=== PATIENT | female | born 1955 | race Caucasian/White ===

== ENCOUNTER 2019-08-16 16:51 | Inpatient (IN) ==
[2019-08-16] MEDS ORDERED: Nitroglycerin 0.4 MG TAB.SUBL SL PRN (19:13)
[2019-08-16] MEDS ORDERED: Aspirin 81 MG TAB.CHEW PO STA (19:13)
[2019-08-16 19:18] LABS: Hematocrit 47.8 % (35.3-44.9); Hemoglobin 15.5 g/dL (11.5-15.4); Mean Corpuscular HGB Conc 32.4 g/dL (31.6-35.5); Mean Corpuscular Hemoglobin 28.2 pg (28.0-33.3); Mean Corpuscular Volume 87.1 fL (83.0-100.0); Mean Platelet Volume 11.6 fL (9.4-12.4); Platelet Count 174 K/mcL (140-400); Red Blood Count 5.49 M/mcL (3.82-4.97); Red Cell Distribution Width 13.5 % (11.5-14.5); White Blood Count 11.6 K/mcL (4.3-11.1)
[2019-08-16] MEDS ORDERED: *HR* FentaNYL (PF) 100 MCG/2 ML VIAL IVP PRN (19:19)
[2019-08-16] MEDS ORDERED: *HR* Heparin 5,000 UNIT/ML VIAL IVP PRN ×3 (19:19→19:34)
[2019-08-16] MEDS ORDERED: *HR* Heparin 5,000 UNIT/ML VIAL IVP ONE ×2 (19:19→19:34)
[2019-08-16] MEDS ORDERED: Ondansetron 4 MG/2 ML VIAL IVP PRN (19:22)
[2019-08-16 19:24] LABS: Prothrombin Time 11.7 Seconds (9.4-12.1)
[2019-08-16] MEDS ORDERED: Heparin 25,000 UNIT/250 ML D5W 25,000 UNIT/250 ML IV.SOLN IVC SCH (19:30)
[2019-08-16] MEDS ORDERED: Ipratropium/Albuterol Neb 3 ML IH SCH (20:00)
[2019-08-16] MEDS: MethylPREDNISolone 40 MG/ML VIAL IVP SCH (20:15)
[2019-08-16] MEDS ORDERED: D5% in Water 1,000 ML IVC PRN (20:17)
[2019-08-16] MEDS ORDERED: *HR* Dextrose 50 % in Water (Syg) 50 ML SYRINGE IVP PRN (20:17)
[2019-08-16] MEDS ORDERED: Dextrose Gel 15 GM/37.5 ML TUBE PO PRN ×2 (20:17)
[2019-08-16] MEDS: Heparin 25,000 UNIT/250 ML D5W 25,000 UNIT/250 ML IV.SOLN IVC SCH (20:22)
[2019-08-16] MEDS: Insulin LISPRO 300 UNITS/3 ML VIAL SQ SCH (20:50)
[2019-08-16] MEDS: Ipratropium/Albuterol Neb 3 ML IH SCH (20:51)
[2019-08-16 22:08] LABS: Adenovirus Not Detected (Not Detect); Coronavirus 229E Not Detected (Not Detect); Coronavirus HKU1 Not Detected (Not Detect); Coronavirus NL63 Not Detected (Not Detect); Coronavirus OC43 Not Detected (Not Detect)
[2019-08-16 22:09] LABS: Bordetella Pertussis Not Detected (Not Detect); Chlamydophila pneumoniae Not Detected (Not Detect); Human Metapneumovirus Not Detected (Not Detect); Human Rhinovirus/Enterovirus DETECTED (Not Detect); Influenza A Subtype 2009 H1 Not Detected (Not Detect); Influenza B Not Detected (Not Detect); Mycoplasma pneumoniae Not Detected (Not Detect); Parainfluenza Virus 1 Not Detected (Not Detect); Parainfluenza Virus 2 Not Detected (Not Detect); Parainfluenza Virus 3 Not Detected (Not Detect); Parainfluenza Virus 4 Not Detected (Not Detect); Respiratory Syncytial Virus Not Detected (Not Detect)
[2019-08-16] MEDS ORDERED: DICLOFENAC GEL TP PRN (23:24)
[2019-08-16] MEDS: Insulin DETEMIR 100 UNIT/ML X5UNITS SQ SCH (23:55)
[2019-08-17] MEDS: Ipratropium/Albuterol Neb 3 ML IH SCH ×7 (00:22→23:46)
[2019-08-17 02:30] LABS: Basophils % 0.2 %; Hematocrit 46.6 % (35.3-44.9); Hemoglobin 14.7 g/dL (11.5-15.4); Immature Granulocytes % 0.6 % (0-4); Lymphocytes # 0.7 K/mcL (0.6-4.6); Lymphocytes % 6.4 %; Mean Corpuscular HGB Conc 31.5 g/dL (31.6-35.5); Mean Corpuscular Hemoglobin 27.8 pg (28.0-33.3); Mean Corpuscular Volume 88.1 fL (83.0-100.0); Mean Platelet Volume 11.3 fL (9.4-12.4); Monocytes # 0.3 K/mcL (0.0-1.3); Monocytes % 2.9 %; Neutrophils # 9.7 K/mcL (1.6-8.9); Platelet Count 169 K/mcL (140-400); Red Blood Count 5.29 M/mcL (3.82-4.97); Red Cell Distribution Width 13.5 % (11.5-14.5); Segmented Neutrophils % 89.9 %; White Blood Count 10.8 K/mcL (4.3-11.1)
[2019-08-17] MEDS ORDERED: *HR* LORazepam 0.5 MG TABLET PO ONE (02:43)
[2019-08-17 02:51] LABS: BUN/Creatinine Ratio 34 (6-26); Blood Urea Nitrogen 20 mg/dL (8-23); Calcium 8.5 mg/dL (8.6-10.3); Carbon Dioxide 19 mEq/L (23-29); Chloride 103 mEq/L (98-107); Glucose 406 mg/dL (70-105); Osmolality,Calculated 300 (280-300); Potassium 4.5 mEq/L (3.5-5.1); Sodium 135 mEq/L (136-145); Troponin I 0.45 ng/mL (< 0.04); eGFR For African Americans > 60 (> 60); eGFR For Non-African Americans > 60 (> 60)
[2019-08-17] MEDS: MethylPREDNISolone 40 MG/ML VIAL IVP SCH ×3 (03:01→20:40)
[2019-08-17] MEDS ORDERED: Insulin DETEMIR 100 UNIT/ML X5UNITS SQ ONE (04:17)
[2019-08-17] MEDS: Metoprolol XL (24 HR) Succ 25 MG TAB.ER.24H PO SCH (08:30)
[2019-08-17] MEDS: Lisinopril 20 MG TABLET PO SCH (08:30)
[2019-08-17] MEDS: Venlafaxine XR (24 HR) 150 MG CAP.ER.24H PO SCH (08:30)
[2019-08-17] MEDS: Furosemide 40 MG TABLET PO SCH (08:30)
[2019-08-17] MEDS: Aspirin 81 MG TAB.CHEW PO SCH (08:30)
[2019-08-17] MEDS: Isosorbide MONOnitrate (24 HR) 60 MG TAB.ER.24H PO SCH (08:30)
[2019-08-17] MEDS: Insulin LISPRO 300 UNITS/3 ML VIAL SQ SCH ×4 (08:31→20:40)
[2019-08-17] MEDS: Furosemide 40 MG/4 ML VIAL IVP SCH ×2 (10:41→20:40)
[2019-08-17] MEDS: *HR* Heparin 5,000 UNIT/ML VIAL IVP PRN ×2 (16:14→23:18)
[2019-08-17] MEDS: Insulin DETEMIR 100 UNIT/ML X5UNITS SQ SCH (20:41)
[2019-08-18] MEDS: Ipratropium/Albuterol Neb 3 ML IH SCH ×6 (03:51→23:51)
[2019-08-18] MEDS: MethylPREDNISolone 40 MG/ML VIAL IVP SCH ×3 (05:08→21:54)
[2019-08-18] MEDS: Heparin 25,000 UNIT/250 ML D5W 25,000 UNIT/250 ML IV.SOLN IVC SCH (05:09)
[2019-08-18] MEDS: Furosemide 40 MG/4 ML VIAL IVP SCH ×2 (08:50→21:54)
[2019-08-18] MEDS: Venlafaxine XR (24 HR) 150 MG CAP.ER.24H PO SCH (08:50)
[2019-08-18] MEDS: Metoprolol XL (24 HR) Succ 25 MG TAB.ER.24H PO SCH (08:50)
[2019-08-18] MEDS: Insulin LISPRO 300 UNITS/3 ML VIAL SQ SCH ×4 (08:50→21:56)
[2019-08-18] MEDS: Lisinopril 20 MG TABLET PO SCH (08:51)
[2019-08-18] MEDS: Isosorbide MONOnitrate (24 HR) 60 MG TAB.ER.24H PO SCH (08:51)
[2019-08-18] MEDS: Furosemide 40 MG TABLET PO SCH (08:51)
[2019-08-18] MEDS: Aspirin 81 MG TAB.CHEW PO SCH (08:51)
[2019-08-18] MEDS: Insulin DETEMIR 100 UNIT/ML X5UNITS SQ SCH (21:55)
[2019-08-19 02:52] LABS: Basophils % 0.1 %; Hematocrit 48.2 % (35.3-44.9); Hemoglobin 15.8 g/dL (11.5-15.4); Immature Granulocytes % 0.6 % (0-4); Lymphocytes # 0.9 K/mcL (0.6-4.6); Lymphocytes % 6.5 %; Mean Corpuscular HGB Conc 32.8 g/dL (31.6-35.5); Mean Corpuscular Hemoglobin 27.8 pg (28.0-33.3); Mean Corpuscular Volume 84.7 fL (83.0-100.0); Mean Platelet Volume 11.5 fL (9.4-12.4); Monocytes # 0.5 K/mcL (0.0-1.3); Monocytes % 3.3 %; Neutrophils # 12.6 K/mcL (1.6-8.9); Platelet Count 218 K/mcL (140-400); Red Blood Count 5.69 M/mcL (3.82-4.97); Red Cell Distribution Width 13.7 % (11.5-14.5); Segmented Neutrophils % 89.5 %; White Blood Count 14.1 K/mcL (4.3-11.1)
[2019-08-19 03:05] LABS: BUN/Creatinine Ratio 52 (6-26); Blood Urea Nitrogen 31 mg/dL (8-23); Calcium 9.8 mg/dL (8.6-10.3); Carbon Dioxide 34 mEq/L (23-29); Chloride 93 mEq/L (98-107); Glucose 319 mg/dL (70-105); Osmolality,Calculated 301 (280-300); Potassium 4.4 mEq/L (3.5-5.1); Sodium 136 mEq/L (136-145); eGFR For African Americans > 60 (> 60); eGFR For Non-African Americans > 60 (> 60)
[2019-08-19] MEDS: Ipratropium/Albuterol Neb 3 ML IH SCH ×6 (03:50→23:09)
[2019-08-19] MEDS: MethylPREDNISolone 40 MG/ML VIAL IVP SCH ×2 (04:48→12:46)
[2019-08-19] MEDS: Heparin 25,000 UNIT/250 ML D5W 25,000 UNIT/250 ML IV.SOLN IVC SCH (04:48)
[2019-08-19] MEDS: Lisinopril 20 MG TABLET PO SCH ×2 (09:04→14:44)
[2019-08-19] MEDS: Aspirin 81 MG TAB.CHEW PO SCH (09:11)
[2019-08-19] MEDS: Venlafaxine XR (24 HR) 150 MG CAP.ER.24H PO SCH (09:11)
[2019-08-19] MEDS: Insulin LISPRO 300 UNITS/3 ML VIAL SQ SCH ×4 (09:12→21:22)
[2019-08-19] MEDS: Furosemide 40 MG/4 ML VIAL IVP SCH ×2 (10:07→21:20)
[2019-08-19] MEDS: Metoprolol XL (24 HR) Succ 25 MG TAB.ER.24H PO SCH (11:48)
[2019-08-19] MEDS: Isosorbide MONOnitrate (24 HR) 60 MG TAB.ER.24H PO SCH (12:34)
[2019-08-19] MEDS: Insulin DETEMIR 100 UNIT/ML X5UNITS SQ SCH (21:23)
[2019-08-20] MEDS: Ipratropium/Albuterol Neb 3 ML IH SCH ×6 (03:47→23:31)
[2019-08-20] MEDS: Heparin 25,000 UNIT/250 ML D5W 25,000 UNIT/250 ML IV.SOLN IVC SCH (04:56)
[2019-08-20 05:20] LABS: Basophils # 0.1 K/mcL (0.0-0.2); Basophils % 0.3 %; Eosinophils % 0.1 %; Immature Granulocytes % 0.5 % (0-4); Lymphocytes # 3.3 K/mcL (0.6-4.6); Lymphocytes % 17.9 %; Mean Corpuscular Hemoglobin 28.7 pg (28.0-33.3); Mean Corpuscular Volume 87.1 fL (83.0-100.0); Mean Platelet Volume 11.3 fL (9.4-12.4); Monocytes # 1.3 K/mcL (0.0-1.3); Monocytes % 7.2 %; Neutrophils # 13.5 K/mcL (1.6-8.9); Platelet Count 221 K/mcL (140-400); Red Blood Count 6.44 M/mcL (3.82-4.97); Red Cell Distribution Width 14.3 % (11.5-14.5); White Blood Count 18.2 K/mcL (4.3-11.1)
[2019-08-20 05:23] LABS: Hematocrit 56.1 % (35.3-44.9); Hemoglobin 18.5 g/dL (11.5-15.4)
[2019-08-20 05:33] LABS: BUN/Creatinine Ratio 46 (6-26); Blood Urea Nitrogen 41 mg/dL (8-23); Calcium 9.6 mg/dL (8.6-10.3); Carbon Dioxide 35 mEq/L (23-29); Chloride 94 mEq/L (98-107); Glucose 195 mg/dL (70-105); Osmolality,Calculated 307 (280-300); Potassium 4.1 mEq/L (3.5-5.1); Sodium 141 mEq/L (136-145); eGFR For African Americans > 60 (> 60); eGFR For Non-African Americans > 60 (> 60)
[2019-08-20] MEDS: predniSONE 20 MG TABLET PO SCH (12:34)
[2019-08-20] MEDS: Venlafaxine XR (24 HR) 150 MG CAP.ER.24H PO SCH (12:34)
[2019-08-20] MEDS: Aspirin 81 MG TAB.CHEW PO SCH (12:34)
[2019-08-20] MEDS: Furosemide 40 MG/4 ML VIAL IVP SCH (12:34)
[2019-08-20] MEDS: Insulin LISPRO 300 UNITS/3 ML VIAL SQ SCH ×4 (12:35→22:33)
[2019-08-20] MEDS: Isosorbide MONOnitrate (24 HR) 60 MG TAB.ER.24H PO SCH (12:35)
[2019-08-20] MEDS: Lisinopril 20 MG TABLET PO SCH (12:37)
[2019-08-20] MEDS: Metoprolol XL (24 HR) Succ 25 MG TAB.ER.24H PO SCH (12:39)
[2019-08-20] MEDS ORDERED: *HR* Heparin 10,000 UNIT/10 ML VIAL ONE (14:34)
[2019-08-20] MEDS ORDERED: Heparin 1,000 UNITS/500 mL 500 ML ONE (14:34)
[2019-08-20] MEDS ORDERED: ISOVUE-370 200 ML INFUS..BTL ONE (14:35)
[2019-08-20] MEDS ORDERED: Nitroglycerin 1,000 MCG/10 ML VIAL IV ONE (14:35)
[2019-08-20] MEDS ORDERED: 0.9 % Sodium Chloride 2,000 ML ONE (14:35)
[2019-08-20] MEDS ORDERED: *HR* Midazolam HCl 2 MG/2 ML VIAL ONE (15:29)
[2019-08-20] MEDS ORDERED: *HR* FentaNYL (PF) 100 MCG/2 ML VIAL ONE (15:29)
[2019-08-21] MEDS: Insulin DETEMIR 100 UNIT/ML X5UNITS SQ SCH ×2 (00:04→22:10)
[2019-08-21] MEDS: Ipratropium/Albuterol Neb 3 ML IH SCH ×5 (04:09→20:02)
[2019-08-21 07:30] LABS: Basophils % 0.3 %; Eosinophils % 0.2 %; Hematocrit 54.1 % (35.3-44.9); Hemoglobin 17.5 g/dL (11.5-15.4); Immature Granulocytes % 0.6 % (0-4); Lymphocytes # 3.5 K/mcL (0.6-4.6); Lymphocytes % 22.4 %; Mean Corpuscular HGB Conc 32.3 g/dL (31.6-35.5); Mean Corpuscular Volume 86.7 fL (83.0-100.0); Mean Platelet Volume 11.1 fL (9.4-12.4); Monocytes # 1.1 K/mcL (0.0-1.3); Platelet Count 195 K/mcL (140-400); Red Blood Count 6.24 M/mcL (3.82-4.97); Red Cell Distribution Width 13.7 % (11.5-14.5); Segmented Neutrophils % 69.5 %; White Blood Count 15.8 K/mcL (4.3-11.1)
[2019-08-21 07:36] LABS: BUN/Creatinine Ratio 42 (6-26); Blood Urea Nitrogen 31 mg/dL (8-23); Calcium 9.3 mg/dL (8.6-10.3); Carbon Dioxide 36 mEq/L (23-29); Chloride 96 mEq/L (98-107); Glucose 50 mg/dL (70-105); Osmolality,Calculated 292 (280-300); Potassium 4.7 mEq/L (3.5-5.1); Sodium 139 mEq/L (136-145); eGFR For African Americans > 60 (> 60); eGFR For Non-African Americans > 60 (> 60)
[2019-08-21] MEDS: Insulin LISPRO 300 UNITS/3 ML VIAL SQ SCH ×4 (08:00→22:10)
[2019-08-21] MEDS: Venlafaxine XR (24 HR) 150 MG CAP.ER.24H PO SCH (09:15)
[2019-08-21] MEDS: predniSONE 20 MG TABLET PO SCH (09:15)
[2019-08-21] MEDS: Isosorbide MONOnitrate (24 HR) 60 MG TAB.ER.24H PO SCH (09:16)
[2019-08-21] MEDS: Aspirin 81 MG TAB.CHEW PO SCH (09:16)
[2019-08-21] MEDS: Lisinopril 20 MG TABLET PO SCH (09:16)
[2019-08-21] MEDS: Furosemide 40 MG TABLET PO SCH (09:16)
[2019-08-21] MEDS: Metoprolol XL (24 HR) Succ 25 MG TAB.ER.24H PO SCH (09:16)
[2019-08-22] MEDS: Ipratropium/Albuterol Neb 3 ML IH SCH ×5 (04:09→15:40)
[2019-08-22] MEDS ORDERED: *HR* Heparin 5,000 UNIT/ML VIAL IVP PRN ×2 (07:52)
[2019-08-22] MEDS ORDERED: *HR* Heparin 5,000 UNIT/ML VIAL IVP ONE (07:52)
[2019-08-22] MEDS ORDERED: Heparin 25,000 UNIT/250 ML D5W 25,000 UNIT/250 ML IV.SOLN IVC SCH (08:00)
[2019-08-22 08:44] LABS: Hematocrit 52.2 % (35.3-44.9); Hemoglobin 16.7 g/dL (11.5-15.4); Mean Corpuscular Hemoglobin 27.7 pg (28.0-33.3); Mean Corpuscular Volume 86.7 fL (83.0-100.0); Mean Platelet Volume 10.7 fL (9.4-12.4); Platelet Count 192 K/mcL (140-400); Red Blood Count 6.02 M/mcL (3.82-4.97); Red Cell Distribution Width 13.5 % (11.5-14.5); White Blood Count 19.7 K/mcL (4.3-11.1)
[2019-08-22 08:49] LABS: Heparin anti-factor XA UFH < 0.04 IU/mL (0.30-0.70)
[2019-08-22 08:50] LABS: Prothrombin Time 11.9 Seconds (9.4-12.1)
[2019-08-22] MEDS: Insulin LISPRO 300 UNITS/3 ML VIAL SQ SCH ×2 (10:08→12:36)
[2019-08-22] MEDS: Isosorbide MONOnitrate (24 HR) 60 MG TAB.ER.24H PO SCH (10:15)
[2019-08-22] MEDS: Aspirin 81 MG TAB.CHEW PO SCH (10:15)
[2019-08-22] MEDS: Venlafaxine XR (24 HR) 150 MG CAP.ER.24H PO SCH (10:15)
[2019-08-22] MEDS: predniSONE 20 MG TABLET PO SCH (10:16)
[2019-08-22] MEDS: Metoprolol XL (24 HR) Succ 25 MG TAB.ER.24H PO SCH (10:17)
[2019-08-22] MEDS: Lisinopril 20 MG TABLET PO SCH (10:17)
[2019-08-22 13:41] LABS: BUN/Creatinine Ratio 42 (6-26); Blood Urea Nitrogen 26 mg/dL (8-23); Calcium 8.9 mg/dL (8.6-10.3); Carbon Dioxide 34 mEq/L (23-29); Chloride 96 mEq/L (98-107); Glucose 170 mg/dL (70-105); Osmolality,Calculated 289 (280-300); Potassium 4.2 mEq/L (3.5-5.1); Sodium 135 mEq/L (136-145); eGFR For African Americans > 60 (> 60); eGFR For Non-African Americans > 60 (> 60)
[2019-08-22] MEDS: Furosemide 40 MG TABLET PO SCH (13:54)
[2019-08-22 16:10] VITALS: BP 114/55
[2019-08-22] MEDS ORDERED: Insulin DETEMIR 100 UNIT/ML X5UNITS SQ SCH ×2 (21:00)
== END 2019-08-22 17:58 | disposition critical access hospital (66) | DRG 280 ==
LOC: 2NENU → SUATTDRO 18:00
PROVIDERS: ADMIT Internal Medicine; ATTEND Internal Medicine

== ENCOUNTER 2020-08-04 01:16 | Inpatient (IN) ==
[2020-08-04] MEDS ORDERED: Ondansetron 4 MG/2 ML VIAL IVP PRN (03:16)
[2020-08-04] MEDS ORDERED: Naloxone 0.4 MG/ML INJ IVP PRN (03:16)
[2020-08-04] MEDS ORDERED: Acetaminophen 325 MG TABLET PO PRN (03:16)
[2020-08-04] MEDS ORDERED: *HR* Dextrose 50 % in Water (Vial) 50 ML VIAL IVP PRN (03:20)
[2020-08-04] MEDS ORDERED: D5% in Water 1,000 ML IVC PRN (03:20)
[2020-08-04] MEDS ORDERED: Dextrose Gel 15 GM/37.5 ML TUBE PO PRN ×2 (03:20)
[2020-08-04 05:18] LABS: Basophils # 0.1 K/mcL (0.0-0.2); Basophils % 0.6 %; Eosinophils # 0.1 K/mcL (0.0-0.6); Eosinophils % 0.7 %; Hematocrit 50.3 % (35.3-44.9); Hemoglobin 15.8 g/dL (11.5-15.4); Immature Granulocytes % 0.6 % (0-4); Lymphocytes # 2.7 K/mcL (0.6-4.6); Lymphocytes % 22.8 %; Mean Corpuscular HGB Conc 31.4 g/dL (31.6-35.5); Mean Corpuscular Hemoglobin 27.5 pg (28.0-33.3); Mean Corpuscular Volume 87.5 fL (83.0-100.0); Mean Platelet Volume 11.5 fL (9.4-12.4); Monocytes # 0.8 K/mcL (0.0-1.3); Monocytes % 6.4 %; Neutrophils # 8.1 K/mcL (1.6-8.9); Platelet Count 219 K/mcL (140-400); Red Blood Count 5.75 M/mcL (3.82-4.97); Red Cell Distribution Width 13.4 % (11.5-14.5); Segmented Neutrophils % 68.9 %; White Blood Count 11.7 K/mcL (4.3-11.1)
[2020-08-04] MEDS ORDERED: Perflutren Lipid Microsphere 1.3 ML in 0.9 % Sodium Chloride 8.7 ML IVP PRN (05:18)
[2020-08-04] MEDS: Insulin LISPRO 300 UNITS/3 ML VIAL SUBQ SCH ×4 (05:18→23:48)
[2020-08-04 05:37] LABS: Alanine Aminotransferase 46 Units/L (7-52); Albumin/Globulin Ratio 1.4 (1.1-2.2); Alkaline Phosphatase 93 Units/L (34-104); Aspartate Amino Transferase 38 Units/L (13-39); BUN/Creatinine Ratio 23 (6-26); Bilirubin,Total 0.4 mg/dL (0.3-1.0); Blood Urea Nitrogen 15 mg/dL (8-23); Calcium 9.2 mg/dL (8.6-10.3); Carbon Dioxide 28 mEq/L (23-29); Chloride 102 mEq/L (98-107); Globulin 2.8 g/dL (2.4-3.5); Glucose 403 mg/dL (70-105); Magnesium 1.9 mg/dL (1.6-2.6); Osmolality,Calculated 302 (280-300); Phosphorous 4.1 mg/dL (2.7-4.5); Potassium 4.5 mEq/L (3.5-5.1); Sodium 137 mEq/L (136-145); Total Protein 6.8 g/dL (6.4-8.9); eGFR For African Americans > 60 (> 60); eGFR For Non-African Americans > 60 (> 60)
[2020-08-04] MEDS ORDERED: *HR* Heparin 5,000 UNIT/ML VIAL SQ SCH (06:00)
[2020-08-04] MEDS ORDERED: *HR* Heparin 5,000 UNIT/ML VIAL IVP ONE (06:48)
[2020-08-04] MEDS ORDERED: *HR* Heparin 5,000 UNIT/ML VIAL IVP PRN ×2 (06:48)
[2020-08-04 07:24] LABS: Hematocrit 48.2 % (35.3-44.9); Hemoglobin 14.8 g/dL (11.5-15.4); Mean Corpuscular HGB Conc 30.7 g/dL (31.6-35.5); Mean Corpuscular Hemoglobin 26.6 pg (28.0-33.3); Mean Corpuscular Volume 86.5 fL (83.0-100.0); Mean Platelet Volume 11.3 fL (9.4-12.4); Platelet Count 219 K/mcL (140-400); Red Blood Count 5.57 M/mcL (3.82-4.97); Red Cell Distribution Width 13.3 % (11.5-14.5); White Blood Count 11.2 K/mcL (4.3-11.1)
[2020-08-04] MEDS: Heparin 25,000UNIT/250ML 1/2NS 25,000 UNIT/250 ML IV.SOLN IVC SCH (07:26)
[2020-08-04 07:31] LABS: Heparin anti-factor XA UFH < 0.04 IU/mL (0.30-0.70); Prothrombin Time 11.4 Seconds (9.4-12.1)
[2020-08-04] MEDS ORDERED: Furosemide 40 MG/4 ML VIAL IVP SCH (09:00)
[2020-08-04 09:18] LABS: Estimated Average Glucose 338 mg/dl; Hemoglobin A1C 13.4 %
[2020-08-04] MEDS: Insulin DETEMIR 100 UNIT/ML X5UNITS SUBQ SCH ×2 (10:20→20:12)
[2020-08-04] MEDS ORDERED: Aspirin 81 MG TAB.CHEW PO SCH (13:45)
[2020-08-04] MEDS: Aspirin Enteric Coated 81 MG Tablet PO SCH (15:22)
[2020-08-04] MEDS: Metoprolol XL (24 HR) Succ 25 MG TAB.ER.24H PO SCH (15:22)
[2020-08-04] MEDS ORDERED: Nitroglycerin 0.4 MG TAB.SUBL SL PRN (15:35)
[2020-08-04] MEDS: Furosemide 40 MG/4 ML VIAL IVP SCH (20:12)
[2020-08-05 04:35] LABS: Hematocrit 49.7 % (35.3-44.9); Hemoglobin 15.1 g/dL (11.5-15.4); Mean Corpuscular HGB Conc 30.4 g/dL (31.6-35.5); Mean Corpuscular Hemoglobin 26.1 pg (28.0-33.3); Platelet Count 190 K/mcL (140-400); Red Blood Count 5.78 M/mcL (3.82-4.97); Red Cell Distribution Width 13.2 % (11.5-14.5); White Blood Count 11.7 K/mcL (4.3-11.1)
[2020-08-05 04:55] LABS: BUN/Creatinine Ratio 34 (6-26); Blood Urea Nitrogen 20 mg/dL (8-23); Calcium 8.6 mg/dL (8.6-10.3); Carbon Dioxide 29 mEq/L (23-29); Chloride 100 mEq/L (98-107); Glucose 160 mg/dL (70-105); Osmolality,Calculated 290 (280-300); Potassium 3.8 mEq/L (3.5-5.1); Sodium 137 mEq/L (136-145); eGFR For African Americans > 60 (> 60); eGFR For Non-African Americans > 60 (> 60)
[2020-08-05] MEDS: Insulin LISPRO 300 UNITS/3 ML VIAL SUBQ SCH ×3 (05:39→17:29)
[2020-08-05] MEDS: Metoprolol XL (24 HR) Succ 25 MG TAB.ER.24H PO SCH (08:25)
[2020-08-05] MEDS: Insulin DETEMIR 100 UNIT/ML X5UNITS SUBQ SCH ×2 (08:25→20:22)
[2020-08-05] MEDS: Aspirin Enteric Coated 81 MG Tablet PO SCH (08:25)
[2020-08-05] MEDS: Furosemide 40 MG/4 ML VIAL IVP SCH ×2 (08:28→20:22)
[2020-08-05] MEDS: Heparin 25,000UNIT/250ML 1/2NS 25,000 UNIT/250 ML IV.SOLN IVC SCH (09:38)
[2020-08-05] MEDS ORDERED: Heparin 1,000 UNITS/500 mL 500 ML ONE (10:49)
[2020-08-05] MEDS ORDERED: *HR* Heparin 10,000 UNIT/10 ML VIAL ONE (10:49)
[2020-08-05] MEDS ORDERED: ISOVUE-370 200 ML INFUS..BTL ONE ×3 (10:50→12:00)
[2020-08-05] MEDS ORDERED: 0.9 % Sodium Chloride 1,000 ML ONE ×2 (10:50→10:58)
[2020-08-05] MEDS ORDERED: Nitroglycerin 1,000 MCG/10 ML VIAL IV ONE (10:50)
[2020-08-05] MEDS ORDERED: *HR* FentaNYL (PF) 100 MCG/2 ML VIAL ONE (11:21)
[2020-08-05] MEDS ORDERED: *HR* Midazolam HCl 2 MG/2 ML VIAL ONE (11:21)
[2020-08-05] MEDS ORDERED: Tirofiban 12.5 MG/250ML 12.5 MG/250 ML BAG ONE (12:00)
[2020-08-05] MEDS ORDERED: Tirofiban 12.5 MG/250ML 12.5 MG/250 ML BAG IVC SCH (12:15)
[2020-08-05] MEDS ORDERED: Furosemide 40 MG/4 ML VIAL IVP ONE (15:51)
[2020-08-06] MEDS: Insulin LISPRO 300 UNITS/3 ML VIAL SUBQ SCH ×2 (01:24→05:51)
[2020-08-06 03:03] LABS: Basophils % 0.3 %; Eosinophils # 0.3 K/mcL (0.0-0.6); Hematocrit 49.3 % (35.3-44.9); Hemoglobin 15.4 g/dL (11.5-15.4); Immature Granulocytes % 0.5 % (0-4); Lymphocytes # 2.6 K/mcL (0.6-4.6); Lymphocytes % 29.5 %; Mean Corpuscular HGB Conc 31.2 g/dL (31.6-35.5); Mean Corpuscular Volume 86.3 fL (83.0-100.0); Mean Platelet Volume 11.6 fL (9.4-12.4); Monocytes # 0.7 K/mcL (0.0-1.3); Monocytes % 7.5 %; Neutrophils # 5.1 K/mcL (1.6-8.9); Platelet Count 194 K/mcL (140-400); Red Blood Count 5.71 M/mcL (3.82-4.97); Red Cell Distribution Width 13.3 % (11.5-14.5); Segmented Neutrophils % 59.2 %; White Blood Count 8.6 K/mcL (4.3-11.1)
[2020-08-06 03:21] LABS: BUN/Creatinine Ratio 29 (6-26); Blood Urea Nitrogen 20 mg/dL (8-23); Calcium 9.1 mg/dL (8.6-10.3); Carbon Dioxide 32 mEq/L (23-29); Chloride 97 mEq/L (98-107); Glucose 288 mg/dL (70-105); Osmolality,Calculated 295 (280-300); Potassium 3.6 mEq/L (3.5-5.1); Sodium 136 mEq/L (136-145); eGFR For African Americans > 60 (> 60); eGFR For Non-African Americans > 60 (> 60)
[2020-08-06 06:58] VITALS: BP 107/64
[2020-08-06] MEDS ORDERED: Furosemide 40 MG TABLET PO SCH (08:00)
[2020-08-06] MEDS: Metoprolol XL (24 HR) Succ 25 MG TAB.ER.24H PO SCH (09:12)
[2020-08-06] MEDS: Aspirin Enteric Coated 81 MG Tablet PO SCH (09:13)
[2020-08-06] MEDS: Insulin DETEMIR 100 UNIT/ML X5UNITS SUBQ SCH (09:13)
== END 2020-08-06 11:55 | disposition home or self-care (01) | DRG 250 ==
LOC: 3NENU → SUATTDRO 02:59 → 2ANU 08-05 14:21
PROVIDERS: ADMIT Internal Medicine; ATTEND Family Medicine

== ENCOUNTER 2021-03-16 11:53 | Inpatient (IN) ==
[2021-03-16 13:19] LABS: Basophils % 0.3 %; Eosinophils % 0.1 %; Hemoglobin 11.6 g/dL (11.5-15.4); Immature Granulocytes % 0.9 % (0-4); Lymphocytes # 1.3 K/mcL (0.6-4.6); Lymphocytes % 12.1 %; Mean Corpuscular HGB Conc 30.5 g/dL (31.6-35.5); Mean Corpuscular Hemoglobin 26.8 pg (28.0-33.3); Mean Corpuscular Volume 87.8 fL (83.0-100.0); Mean Platelet Volume 12.4 fL (9.4-12.4); Monocytes # 0.9 K/mcL (0.0-1.3); Monocytes % 8.7 %; Neutrophils # 8.2 K/mcL (1.6-8.9); Platelet Count 156 K/mcL (140-400); Red Blood Count 4.33 M/mcL (3.82-4.97); Segmented Neutrophils % 77.9 %; White Blood Count 10.5 K/mcL (4.3-11.1)
[2021-03-16 13:28] LABS: INR 1.1; Prothrombin Time 12.8 Seconds (9.4-12.1)
[2021-03-16 13:31] LABS: Activated Partial Thrombo Time 28.2 Seconds (26.0-36.0)
[2021-03-16 13:51] LABS: Troponin I 0.18 ng/mL (< 0.04)
[2021-03-16 13:56] LABS: Alanine Aminotransferase 88 Units/L (7-52); Albumin 3.7 g/dL (3.5-5.7); Albumin/Globulin Ratio 1.4 (1.1-2.2); Alkaline Phosphatase 95 Units/L (34-104); Aspartate Amino Transferase 66 Units/L (13-39); BUN/Creatinine Ratio 34 (6-26); Bilirubin,Direct 0.2 mg/dL (0.0-0.2); Bilirubin,Indirect 0.4 mg/dL (0.0-1.0); Bilirubin,Total 0.6 mg/dL (0.3-1.0); Blood Urea Nitrogen 26 mg/dL (8-23); Calcium 8.5 mg/dL (8.6-10.3); Carbon Dioxide 27 mEq/L (23-29); Globulin 2.7 g/dL (2.4-3.5); Glucose 272 mg/dL (70-105); Total Protein 6.4 g/dL (6.4-8.9); eGFR For African Americans > 60 (> 60); eGFR For Non-African Americans > 60 (> 60)
[2021-03-16 13:58] LABS: Bacteria,Urine Few per hpf (None-Few); Bilirubin,Urine Negative (Negative); Blood,Urine Negative (Negative); Clarity,Urine Clear (Clear); Color,Urine Yellow (Yellow); Glucose,Urine (UA) >=1000 mg/dL (Normal); Hyaline Casts,Urine Few per lpf (None Seen); Ketones,Urine Negative (Negative); Leukocyte Esterase,Urine Negative (Negative); Mucus,Urine Few per lpf (None-Few); Nitrite,Urine Negative (Negative); PH,Urine 5.5 pH Units (5.0-8.0); Protein,Urine 50 mg/dL (Neg-Trace); RBC,Urine 0-3 per hpf (0-3); Specific Gravity,Urine 1.021 (1.010-1.025); Squamous Epithelial Cell,Urine Moderate per hpf (None-Few); Urobilinogen,Urine Normal (Normal)
[2021-03-16] MEDS ORDERED: Furosemide 80 MG in 0.9 % Sodium Chloride 50 ML IVPB ONE (14:09)
[2021-03-16] MEDS ORDERED: Aspirin 81 MG TAB.CHEW PO STA (14:09)
[2021-03-16 14:42] LABS: Chloride 96 mEq/L (98-107); Osmolality,Calculated 290 (280-300); Potassium 3.7 mEq/L (3.5-5.1); Sodium 133 mEq/L (136-145)
[2021-03-16] MEDS ORDERED: Naloxone 0.4 MG/ML INJ IVP PRN (16:04)
[2021-03-16] MEDS ORDERED: Acetaminophen 325 MG TABLET PO PRN (16:04)
[2021-03-16] MEDS ORDERED: Melatonin 3 MG TABLET PO PRN (16:04)
[2021-03-16] MEDS ORDERED: D5% in Water 1,000 ML IVC PRN (16:17)
[2021-03-16] MEDS ORDERED: Dextrose Gel 15 GM/37.5 ML TUBE PO PRN ×2 (16:17)
[2021-03-16] MEDS ORDERED: *HR* Dextrose 50 % in Water (Vial) 50 ML VIAL IVP PRN (16:17)
[2021-03-16] MEDS: Insulin LISPRO 300 UNITS/3 ML VIAL SUBQ SCH (20:29)
[2021-03-16] MEDS ORDERED: Insulin LISPRO 300 UNITS/3 ML VIAL SUBQ SCH (21:00)
[2021-03-17 00:48] LABS: Basophils % 0.3 %; Hematocrit 37.1 % (35.3-44.9); Hemoglobin 11.8 g/dL (11.5-15.4); Immature Granulocytes % 0.5 % (0-4); Lymphocytes # 2.3 K/mcL (0.6-4.6); Lymphocytes % 20.7 %; Mean Corpuscular HGB Conc 31.8 g/dL (31.6-35.5); Mean Corpuscular Volume 87.9 fL (83.0-100.0); Mean Platelet Volume 12.6 fL (9.4-12.4); Monocytes # 0.8 K/mcL (0.0-1.3); Monocytes % 7.1 %; Neutrophils # 7.9 K/mcL (1.6-8.9); Platelet Count 155 K/mcL (140-400); Red Blood Count 4.22 M/mcL (3.82-4.97); Red Cell Distribution Width 14.1 % (11.5-14.5); Segmented Neutrophils % 71.4 %; White Blood Count 11.1 K/mcL (4.3-11.1)
[2021-03-17 00:56] LABS: Estimated Average Glucose 209 mg/dl; Hemoglobin A1C 8.9 %
[2021-03-17 01:07] LABS: Albumin 3.6 g/dL (3.5-5.7); Albumin/Globulin Ratio 1.2 (1.1-2.2); Bilirubin,Direct 0.1 mg/dL (0.0-0.2); Bilirubin,Indirect 0.6 mg/dL (0.0-1.0); Bilirubin,Total 0.7 mg/dL (0.3-1.0); Total Protein 6.6 g/dL (6.4-8.9)
[2021-03-17 01:08] LABS: BUN/Creatinine Ratio 32 (6-26); Blood Urea Nitrogen 26 mg/dL (8-23); Calcium 8.4 mg/dL (8.6-10.3); Carbon Dioxide 26 mEq/L (23-29); Chloride 96 mEq/L (98-107); Chol/HDL Ratio 3.9 (0-4.9); Cholesterol 94 mg/dL (< 200); Glucose 300 mg/dL (70-105); HDL Cholesterol 24 mg/dL (40-59); LDL Cholesterol,Calculated 50 mg/dL (< 100); Magnesium 1.7 mg/dL (1.6-2.6); Osmolality,Calculated 296 (280-300); Phosphorous 2.7 mg/dL (2.7-4.5); Potassium 3.9 mEq/L (3.5-5.1); Sodium 135 mEq/L (136-145); Triglycerides 101 mg/dL (< 150); eGFR For African Americans > 60 (> 60); eGFR For Non-African Americans > 60 (> 60)
[2021-03-17] MEDS ORDERED: *HR* Enoxaparin 40 MG/0.4 ML SYRINGE SQ SCH (06:00)
[2021-03-17] MEDS: Aspirin Enteric Coated 81 MG Tablet PO SCH (09:40)
[2021-03-17] MEDS: Insulin LISPRO 300 UNITS/3 ML VIAL SUBQ SCH ×4 (09:40→20:29)
[2021-03-17] MEDS: Furosemide 40 MG/4 ML VIAL IVP SCH ×2 (09:40→20:29)
[2021-03-17] MEDS: Insulin DETEMIR 100 UNIT/ML X5UNITS SUBQ SCH ×2 (12:56→20:31)
[2021-03-17] MEDS ORDERED: Nitroglycerin 0.4 MG TAB.SUBL SL PRN (18:20)
[2021-03-17] MEDS: *HR* Enoxaparin 40 MG/0.4 ML SYRINGE SQ SCH (18:25)
[2021-03-17] MEDS: Pantoprazole 40 MG VIAL IVP SCH (18:25)
[2021-03-17] MEDS ORDERED: *HR* Heparin 5,000 UNIT/ML VIAL IVP PRN ×2 (18:37)
[2021-03-17] MEDS ORDERED: *HR* Heparin 5,000 UNIT/ML VIAL IVP ONE (18:37)
[2021-03-17] MEDS: Metoprolol XL (24 HR) Succ 25 MG TAB.ER.24H PO SCH (18:40)
[2021-03-17 19:13] LABS: Hematocrit 36.3 % (35.3-44.9); Hemoglobin 11.6 g/dL (11.5-15.4); Mean Corpuscular Hemoglobin 27.9 pg (28.0-33.3); Mean Corpuscular Volume 87.3 fL (83.0-100.0); Mean Platelet Volume 12.4 fL (9.4-12.4); Platelet Count 152 K/mcL (140-400); Red Blood Count 4.16 M/mcL (3.82-4.97); Red Cell Distribution Width 14.1 % (11.5-14.5); White Blood Count 11.5 K/mcL (4.3-11.1)
[2021-03-17 19:17] LABS: Heparin anti-factor XA UFH 0.11 IU/mL (0.30-0.70); INR 1.1; Prothrombin Time 12.9 Seconds (9.4-12.1)
[2021-03-17] MEDS: Heparin 25,000UNIT/250ML 1/2NS 25,000 UNIT/250 ML IV.SOLN IVC SCH (20:28)
[2021-03-18 02:40] LABS: Basophils % 0.2 %; Hematocrit 38.2 % (35.3-44.9); Hemoglobin 12.2 g/dL (11.5-15.4); Lymphocytes # 0.9 K/mcL (0.6-4.6); Lymphocytes % 9.3 %; Mean Corpuscular HGB Conc 31.9 g/dL (31.6-35.5); Mean Corpuscular Hemoglobin 27.7 pg (28.0-33.3); Mean Corpuscular Volume 86.8 fL (83.0-100.0); Mean Platelet Volume 12.1 fL (9.4-12.4); Monocytes # 0.7 K/mcL (0.0-1.3); Monocytes % 7.1 %; Neutrophils # 7.7 K/mcL (1.6-8.9); Platelet Count 166 K/mcL (140-400); Red Cell Distribution Width 13.9 % (11.5-14.5); Segmented Neutrophils % 82.4 %; White Blood Count 9.3 K/mcL (4.3-11.1)
[2021-03-18 03:01] LABS: Alanine Aminotransferase 71 Units/L (7-52); Albumin 3.9 g/dL (3.5-5.7); Albumin/Globulin Ratio 1.1 (1.1-2.2); Alkaline Phosphatase 95 Units/L (34-104); Aspartate Amino Transferase 34 Units/L (13-39); BUN/Creatinine Ratio 31 (6-26); Bilirubin,Direct 0.2 mg/dL (0.0-0.2); Bilirubin,Indirect 0.4 mg/dL (0.0-1.0); Bilirubin,Total 0.6 mg/dL (0.3-1.0); Blood Urea Nitrogen 25 mg/dL (8-23); Carbon Dioxide 29 mEq/L (23-29); Chloride 98 mEq/L (98-107); Globulin 3.4 g/dL (2.4-3.5); Glucose 209 mg/dL (70-105); Osmolality,Calculated 295 (280-300); Sodium 137 mEq/L (136-145); Total Protein 7.3 g/dL (6.4-8.9); eGFR For African Americans > 60 (> 60); eGFR For Non-African Americans > 60 (> 60)
[2021-03-18] MEDS: Insulin LISPRO 300 UNITS/3 ML VIAL SUBQ SCH ×3 (07:52→17:05)
[2021-03-18] MEDS: Aspirin Enteric Coated 81 MG Tablet PO SCH (10:17)
[2021-03-18] MEDS: Pantoprazole 40 MG VIAL IVP SCH (10:17)
[2021-03-18] MEDS: Furosemide 40 MG/4 ML VIAL IVP SCH ×2 (10:18→21:02)
[2021-03-18] MEDS: metOLazone 2.5 MG TABLET PO SCH (10:18)
[2021-03-18] MEDS: Metoprolol XL (24 HR) Succ 25 MG TAB.ER.24H PO SCH (10:18)
[2021-03-18] MEDS: Insulin DETEMIR 100 UNIT/ML X5UNITS SUBQ SCH ×2 (10:20→21:04)
[2021-03-18] MEDS: Ipratropium 1 PUFF INHALER IH SCH ×2 (18:22→21:31)
[2021-03-18] MEDS: *HR* Enoxaparin 40 MG/0.4 ML SYRINGE SQ SCH (18:40)
[2021-03-18] MEDS: Heparin 25,000UNIT/250ML 1/2NS 25,000 UNIT/250 ML IV.SOLN IVC SCH (21:00)
[2021-03-19 02:49] LABS: Basophils % 0.2 %; Hematocrit 40.8 % (35.3-44.9); Hemoglobin 12.3 g/dL (11.5-15.4); Immature Granulocytes % 0.6 % (0-4); Lymphocytes % 7.5 %; Mean Corpuscular HGB Conc 30.1 g/dL (31.6-35.5); Mean Corpuscular Hemoglobin 27.2 pg (28.0-33.3); Mean Corpuscular Volume 90.1 fL (83.0-100.0); Mean Platelet Volume 12.1 fL (9.4-12.4); Monocytes # 0.6 K/mcL (0.0-1.3); Monocytes % 4.8 %; Platelet Count 151 K/mcL (140-400); Red Blood Count 4.53 M/mcL (3.82-4.97); Red Cell Distribution Width 14.1 % (11.5-14.5); Segmented Neutrophils % 86.9 %; White Blood Count 12.7 K/mcL (4.3-11.1)
[2021-03-19 03:02] LABS: BUN/Creatinine Ratio 42 (6-26); Blood Urea Nitrogen 35 mg/dL (8-23); Calcium 9.3 mg/dL (8.6-10.3); Carbon Dioxide 27 mEq/L (23-29); Chloride 97 mEq/L (98-107); Glucose 152 mg/dL (70-105); Magnesium 1.9 mg/dL (1.6-2.6); Osmolality,Calculated 293 (280-300); Potassium 4.1 mEq/L (3.5-5.1); Sodium 136 mEq/L (136-145); eGFR For African Americans > 60 (> 60); eGFR For Non-African Americans > 60 (> 60)
[2021-03-19] MEDS: Ipratropium 1 PUFF INHALER IH SCH ×4 (03:47→22:43)
[2021-03-19] MEDS ORDERED: Morphine Sulfate 2 MG/ML SYRINGE IVP ONE (06:27)
[2021-03-19] MEDS: Insulin LISPRO 300 UNITS/3 ML VIAL SUBQ SCH ×3 (08:48→17:49)
[2021-03-19] MEDS: Pantoprazole 40 MG VIAL IVP SCH (08:48)
[2021-03-19] MEDS: Furosemide 40 MG/4 ML VIAL IVP SCH (08:48)
[2021-03-19] MEDS: Metoprolol XL (24 HR) Succ 25 MG TAB.ER.24H PO SCH (08:49)
[2021-03-19] MEDS: Aspirin Enteric Coated 81 MG Tablet PO SCH (08:49)
[2021-03-19] MEDS: Loratadine 10 MG TABLET PO SCH (08:49)
[2021-03-19] MEDS: metOLazone 2.5 MG TABLET PO SCH (08:49)
[2021-03-19] MEDS: Insulin DETEMIR 100 UNIT/ML X5UNITS SUBQ SCH ×2 (08:50→22:55)
[2021-03-20 00:50] LABS: Basophils % 0.1 %; Hematocrit 38.3 % (35.3-44.9); Hemoglobin 12.3 g/dL (11.5-15.4); Immature Granulocytes % 0.6 % (0-4); Lymphocytes # 1.1 K/mcL (0.6-4.6); Lymphocytes % 6.2 %; Mean Corpuscular HGB Conc 32.1 g/dL (31.6-35.5); Mean Corpuscular Hemoglobin 28.1 pg (28.0-33.3); Mean Corpuscular Volume 87.6 fL (83.0-100.0); Mean Platelet Volume 11.7 fL (9.4-12.4); Monocytes # 0.7 K/mcL (0.0-1.3); Monocytes % 3.9 %; Neutrophils # 15.6 K/mcL (1.6-8.9); Platelet Count 188 K/mcL (140-400); Red Blood Count 4.37 M/mcL (3.82-4.97); Segmented Neutrophils % 89.2 %; White Blood Count 17.5 K/mcL (4.3-11.1)
[2021-03-20 01:07] LABS: BUN/Creatinine Ratio 31 (6-26); Blood Urea Nitrogen 27 mg/dL (8-23); Calcium 9.3 mg/dL (8.6-10.3); Carbon Dioxide 32 mEq/L (23-29); Chloride 91 mEq/L (98-107); Glucose 250 mg/dL (70-105); Osmolality,Calculated 286 (280-300); Sodium 131 mEq/L (136-145); eGFR For African Americans > 60 (> 60); eGFR For Non-African Americans > 60 (> 60)
[2021-03-20] MEDS: Ipratropium 1 PUFF INHALER IH SCH ×4 (04:07→21:57)
[2021-03-20] MEDS: Aspirin Enteric Coated 81 MG Tablet PO SCH (09:31)
[2021-03-20] MEDS: Metoprolol XL (24 HR) Succ 25 MG TAB.ER.24H PO SCH (09:31)
[2021-03-20] MEDS: Magnesium Oxide 400 MG TABLET PO SCH ×2 (09:31→19:56)
[2021-03-20] MEDS: Loratadine 10 MG TABLET PO SCH (09:31)
[2021-03-20] MEDS: Spironolactone 25 MG TABLET PO SCH (09:31)
[2021-03-20] MEDS: Pantoprazole 40 MG VIAL IVP SCH (09:32)
[2021-03-20] MEDS: Furosemide 40 MG/4 ML VIAL IVP SCH (09:32)
[2021-03-20] MEDS: Insulin DETEMIR 100 UNIT/ML X5UNITS SUBQ SCH ×2 (09:34→20:34)
[2021-03-20] MEDS: Insulin LISPRO 300 UNITS/3 ML VIAL SUBQ SCH ×3 (09:34→17:47)
[2021-03-20] MEDS: Doxycycline 100 MG in 0.9 % Sodium Chloride Mini Bag 100 ML IVPB SCH (17:46)
[2021-03-21] MEDS: Ipratropium 1 PUFF INHALER IH SCH ×4 (03:49→21:59)
[2021-03-21 05:52] LABS: Basophils % 0.1 %; Hematocrit 38.2 % (35.3-44.9); Immature Granulocytes % 0.9 % (0-4); Lymphocytes % 5.9 %; Mean Corpuscular HGB Conc 31.4 g/dL (31.6-35.5); Mean Corpuscular Hemoglobin 27.4 pg (28.0-33.3); Mean Corpuscular Volume 87.2 fL (83.0-100.0); Mean Platelet Volume 11.7 fL (9.4-12.4); Monocytes # 0.4 K/mcL (0.0-1.3); Monocytes % 2.6 %; Neutrophils # 15.4 K/mcL (1.6-8.9); Platelet Count 192 K/mcL (140-400); Red Blood Count 4.38 M/mcL (3.82-4.97); Red Cell Distribution Width 13.8 % (11.5-14.5); Segmented Neutrophils % 90.5 %; White Blood Count 17.1 K/mcL (4.3-11.1)
[2021-03-21 06:06] LABS: BUN/Creatinine Ratio 30 (6-26); Blood Urea Nitrogen 25 mg/dL (8-23); Calcium 9.3 mg/dL (8.6-10.3); Carbon Dioxide 31 mEq/L (23-29); Chloride 92 mEq/L (98-107); Glucose 184 mg/dL (70-105); Magnesium 2.1 mg/dL (1.6-2.6); Osmolality,Calculated 283 (280-300); Potassium 4.3 mEq/L (3.5-5.1); Sodium 132 mEq/L (136-145); eGFR For African Americans > 60 (> 60); eGFR For Non-African Americans > 60 (> 60)
[2021-03-21] MEDS: *HR* Enoxaparin 40 MG/0.4 ML SYRINGE SQ SCH (06:09)
[2021-03-21] MEDS: Doxycycline 100 MG in 0.9 % Sodium Chloride Mini Bag 100 ML IVPB SCH ×2 (06:09→16:36)
[2021-03-21] MEDS: Insulin LISPRO 300 UNITS/3 ML VIAL SUBQ SCH ×3 (09:34→15:59)
[2021-03-21] MEDS: Pantoprazole 40 MG VIAL IVP SCH (09:35)
[2021-03-21] MEDS: Loratadine 10 MG TABLET PO SCH (09:35)
[2021-03-21] MEDS: Metoprolol XL (24 HR) Succ 25 MG TAB.ER.24H PO SCH (09:35)
[2021-03-21] MEDS: Magnesium Oxide 400 MG TABLET PO SCH ×2 (09:35→20:49)
[2021-03-21] MEDS: Aspirin Enteric Coated 81 MG Tablet PO SCH (09:35)
[2021-03-21] MEDS: Spironolactone 25 MG TABLET PO SCH (09:35)
[2021-03-21] MEDS: Furosemide 40 MG/4 ML VIAL IVP SCH (09:36)
[2021-03-21] MEDS: Insulin DETEMIR 100 UNIT/ML X5UNITS SUBQ SCH ×2 (12:33→20:59)
[2021-03-21] MEDS ORDERED: Aspirin 81 MG TAB.CHEW ONE (14:09)
[2021-03-21] MEDS ORDERED: Aspirin 81 MG TAB.CHEW PO STA (14:09)
[2021-03-21] MEDS: Aspirin 81 MG TAB.CHEW ONE (14:11)
[2021-03-21] MEDS ORDERED: Amiodarone Premix 150 MG/100 ML BAG IVPB ONE (14:39)
[2021-03-21] MEDS ORDERED: Amiodarone Premix 360 MG/200 ML BAG IVC ONE (14:48)
[2021-03-21] MEDS ORDERED: *HR* Heparin 5,000 UNIT/ML VIAL IVP ONE (14:49)
[2021-03-21] MEDS ORDERED: *HR* Heparin 5,000 UNIT/ML VIAL IVP PRN ×2 (14:49)
[2021-03-21 15:09] LABS: Heparin anti-factor XA UFH 0.18 IU/mL (0.30-0.70); INR 1.2; Prothrombin Time 13.5 Seconds (9.4-12.1)
[2021-03-21 15:11] LABS: Activated Partial Thrombo Time 30.5 Seconds (26.0-36.0)
[2021-03-21] MEDS: Heparin 25,000UNIT/250ML 1/2NS 25,000 UNIT/250 ML IV.SOLN IVC SCH (15:58)
[2021-03-21 16:54] LABS: Hematocrit 36.4 % (35.3-44.9); Hemoglobin 11.9 g/dL (11.5-15.4); Mean Corpuscular HGB Conc 32.7 g/dL (31.6-35.5); Mean Corpuscular Volume 85.6 fL (83.0-100.0); Mean Platelet Volume 11.2 fL (9.4-12.4); Platelet Count 194 K/mcL (140-400); Red Blood Count 4.25 M/mcL (3.82-4.97); Red Cell Distribution Width 13.9 % (11.5-14.5); White Blood Count 15.7 K/mcL (4.3-11.1)
[2021-03-21 17:22] LABS: BUN/Creatinine Ratio 32 (6-26); Blood Urea Nitrogen 30 mg/dL (8-23); Calcium 9.1 mg/dL (8.6-10.3); Carbon Dioxide 33 mEq/L (23-29); Chloride 91 mEq/L (98-107); Glucose 261 mg/dL (70-105); Osmolality,Calculated 287 (280-300); Potassium 3.9 mEq/L (3.5-5.1); Sodium 131 mEq/L (136-145); Troponin I 0.07 ng/mL (< 0.04); eGFR For African Americans > 60 (> 60); eGFR For Non-African Americans > 60 (> 60)
[2021-03-21] MEDS: Amiodarone Premix 360 MG/200 ML BAG IVC SCH (22:51)
[2021-03-22] MEDS: Ipratropium 1 PUFF INHALER IH SCH ×4 (03:24→23:37)
[2021-03-22] MEDS ORDERED: Amiodarone Premix 360 MG/200 ML BAG IVC SCH (04:42)
[2021-03-22] MEDS: Doxycycline 100 MG in 0.9 % Sodium Chloride Mini Bag 100 ML IVPB SCH ×2 (06:35→18:05)
[2021-03-22] MEDS: Pantoprazole 40 MG VIAL IVP SCH (07:35)
[2021-03-22] MEDS: Metoprolol XL (24 HR) Succ 25 MG TAB.ER.24H PO SCH (07:36)
[2021-03-22] MEDS: Magnesium Oxide 400 MG TABLET PO SCH ×2 (07:36→20:56)
[2021-03-22] MEDS: Furosemide 40 MG/4 ML VIAL IVP SCH (07:36)
[2021-03-22] MEDS: Aspirin Enteric Coated 81 MG Tablet PO SCH (07:36)
[2021-03-22] MEDS: Spironolactone 25 MG TABLET PO SCH (07:36)
[2021-03-22] MEDS: *HR* Enoxaparin 40 MG/0.4 ML SYRINGE SQ SCH (07:36)
[2021-03-22] MEDS: Loratadine 10 MG TABLET PO SCH (07:36)
[2021-03-22] MEDS: Insulin DETEMIR 100 UNIT/ML X5UNITS SUBQ SCH ×2 (07:58→20:56)
[2021-03-22] MEDS: Insulin LISPRO 300 UNITS/3 ML VIAL SUBQ SCH ×3 (07:58→18:04)
[2021-03-22 09:25] LABS: Basophils % 0.1 %; Hematocrit 36.6 % (35.3-44.9); Hemoglobin 11.6 g/dL (11.5-15.4); Immature Granulocytes % 0.9 % (0-4); Lymphocytes # 0.8 K/mcL (0.6-4.6); Lymphocytes % 5.2 %; Mean Corpuscular HGB Conc 31.7 g/dL (31.6-35.5); Mean Corpuscular Volume 85.3 fL (83.0-100.0); Monocytes # 0.4 K/mcL (0.0-1.3); Neutrophils # 13.1 K/mcL (1.6-8.9); Platelet Count 196 K/mcL (140-400); Red Blood Count 4.29 M/mcL (3.82-4.97); Segmented Neutrophils % 90.8 %; White Blood Count 14.4 K/mcL (4.3-11.1)
[2021-03-22 09:42] LABS: Alanine Aminotransferase 23 Units/L (7-52); Albumin 3.3 g/dL (3.5-5.7); Albumin/Globulin Ratio 0.9 (1.1-2.2); Alkaline Phosphatase 61 Units/L (34-104); Aspartate Amino Transferase 20 Units/L (13-39); BUN/Creatinine Ratio 37 (6-26); Bilirubin,Direct 0.2 mg/dL (0.0-0.2); Bilirubin,Indirect 0.4 mg/dL (0.0-1.0); Bilirubin,Total 0.6 mg/dL (0.3-1.0); Blood Urea Nitrogen 31 mg/dL (8-23); Calcium 8.8 mg/dL (8.6-10.3); Carbon Dioxide 29 mEq/L (23-29); Chloride 94 mEq/L (98-107); Globulin 3.7 g/dL (2.4-3.5); Glucose 175 mg/dL (70-105); Magnesium 2.4 mg/dL (1.6-2.6); Osmolality,Calculated 287 (280-300); Potassium 3.8 mEq/L (3.5-5.1); Sodium 133 mEq/L (136-145); eGFR For African Americans > 60 (> 60); eGFR For Non-African Americans > 60 (> 60)
[2021-03-22] MEDS: Amiodarone Premix 360 MG/200 ML BAG IVC SCH (12:17)
[2021-03-22] MEDS: Heparin 25,000UNIT/250ML 1/2NS 25,000 UNIT/250 ML IV.SOLN IVC SCH ×2 (18:04→20:34)
[2021-03-23 02:05] LABS: Basophils % 0.1 %; Hematocrit 35.1 % (35.3-44.9); Hemoglobin 11.1 g/dL (11.5-15.4); Immature Granulocytes % 1.1 % (0-4); Lymphocytes # 0.8 K/mcL (0.6-4.6); Mean Corpuscular HGB Conc 31.6 g/dL (31.6-35.5); Mean Corpuscular Hemoglobin 27.1 pg (28.0-33.3); Mean Corpuscular Volume 85.6 fL (83.0-100.0); Mean Platelet Volume 11.2 fL (9.4-12.4); Monocytes # 0.6 K/mcL (0.0-1.3); Monocytes % 5.8 %; Neutrophils # 9.5 K/mcL (1.6-8.9); Platelet Count 214 K/mcL (140-400); Red Cell Distribution Width 13.8 % (11.5-14.5)
[2021-03-23 02:17] LABS: BUN/Creatinine Ratio 40 (6-26); Blood Urea Nitrogen 38 mg/dL (8-23); Calcium 8.5 mg/dL (8.6-10.3); Carbon Dioxide 29 mEq/L (23-29); Chloride 93 mEq/L (98-107); Glucose 263 mg/dL (70-105); Magnesium 2.2 mg/dL (1.6-2.6); Osmolality,Calculated 292 (280-300); Potassium 3.7 mEq/L (3.5-5.1); Sodium 132 mEq/L (136-145); eGFR For African Americans > 60 (> 60); eGFR For Non-African Americans 59 (> 60)
[2021-03-23] MEDS: Ipratropium 1 PUFF INHALER IH SCH ×4 (04:53→22:57)
[2021-03-23] MEDS: Doxycycline 100 MG in 0.9 % Sodium Chloride Mini Bag 100 ML IVPB SCH ×2 (06:06→16:47)
[2021-03-23] MEDS: Metoprolol XL (24 HR) Succ 25 MG TAB.ER.24H PO SCH (10:20)
[2021-03-23] MEDS: Pantoprazole 40 MG VIAL IVP SCH (10:20)
[2021-03-23] MEDS: Spironolactone 25 MG TABLET PO SCH (10:20)
[2021-03-23] MEDS: Loratadine 10 MG TABLET PO SCH (10:20)
[2021-03-23] MEDS: Aspirin Enteric Coated 81 MG Tablet PO SCH (10:20)
[2021-03-23] MEDS: *HR* Amiodarone 200 MG TABLET PO SCH (10:20)
[2021-03-23] MEDS: Insulin LISPRO 300 UNITS/3 ML VIAL SUBQ SCH ×3 (10:21→16:47)
[2021-03-23] MEDS: Magnesium Oxide 400 MG TABLET PO SCH ×2 (10:21→22:04)
[2021-03-23] MEDS: Furosemide 40 MG/4 ML VIAL IVP SCH (11:28)
[2021-03-23] MEDS: Insulin DETEMIR 100 UNIT/ML X5UNITS SUBQ SCH ×2 (12:05→22:04)
[2021-03-24] MEDS: Ipratropium 1 PUFF INHALER IH SCH ×3 (03:39→15:26)
[2021-03-24] MEDS: Doxycycline 100 MG in 0.9 % Sodium Chloride Mini Bag 100 ML IVPB SCH (05:49)
[2021-03-24 06:04] LABS: Basophils % 0.2 %; Eosinophils % 0.1 %; Hematocrit 37.2 % (35.3-44.9); Hemoglobin 11.6 g/dL (11.5-15.4); Immature Granulocytes % 2.3 % (0-4); Lymphocytes % 9.5 %; Mean Corpuscular HGB Conc 31.2 g/dL (31.6-35.5); Mean Corpuscular Hemoglobin 26.9 pg (28.0-33.3); Mean Corpuscular Volume 86.1 fL (83.0-100.0); Mean Platelet Volume 11.1 fL (9.4-12.4); Monocytes # 0.7 K/mcL (0.0-1.3); Monocytes % 6.7 %; Neutrophils # 8.8 K/mcL (1.6-8.9); Platelet Count 273 K/mcL (140-400); Red Blood Count 4.32 M/mcL (3.82-4.97); Red Cell Distribution Width 13.7 % (11.5-14.5); Segmented Neutrophils % 81.2 %; White Blood Count 10.8 K/mcL (4.3-11.1)
[2021-03-24 06:13] LABS: Heparin anti-factor XA UFH < 0.04 IU/mL (0.30-0.70)
[2021-03-24 06:15] LABS: D-Dimer 619 ng/mLFEU (0-500)
[2021-03-24 06:26] LABS: BUN/Creatinine Ratio 41 (6-26); Blood Urea Nitrogen 30 mg/dL (8-23); Carbon Dioxide 32 mEq/L (23-29); Chloride 94 mEq/L (98-107); Glucose 284 mg/dL (70-105); Magnesium 2.2 mg/dL (1.6-2.6); Osmolality,Calculated 294 (280-300); Potassium 3.8 mEq/L (3.5-5.1); Sodium 134 mEq/L (136-145); eGFR For African Americans > 60 (> 60); eGFR For Non-African Americans > 60 (> 60)
[2021-03-24 07:54] VITALS: BP 126/61; PULSE 64; TEMP 97.4
[2021-03-24] MEDS: Magnesium Oxide 400 MG TABLET PO SCH (08:00)
[2021-03-24] MEDS: Metoprolol XL (24 HR) Succ 25 MG TAB.ER.24H PO SCH (08:00)
[2021-03-24] MEDS: *HR* Amiodarone 200 MG TABLET PO SCH (08:01)
[2021-03-24] MEDS: Spironolactone 25 MG TABLET PO SCH (08:01)
[2021-03-24] MEDS: Aspirin Enteric Coated 81 MG Tablet PO SCH (08:01)
[2021-03-24] MEDS: Loratadine 10 MG TABLET PO SCH (08:01)
[2021-03-24] MEDS: Pantoprazole 40 MG VIAL IVP SCH (08:02)
[2021-03-24] MEDS: Insulin LISPRO 300 UNITS/3 ML VIAL SUBQ SCH ×2 (08:25→12:44)
[2021-03-24 11:22] VITALS: O2SAT 98
[2021-03-24] MEDS: Insulin DETEMIR 100 UNIT/ML X5UNITS SUBQ SCH (12:43)
== END 2021-03-24 17:16 | disposition home health service (06) | DRG 177 ==
LOC: 2ANU 11:53 → EMEROOARM 11:53 → SUATTDRO 15:39 → 3ANU 18:54 → ICNU 03-21 16:34 → CDU 03-22 09:51
PROVIDERS: ADMIT Internal Medicine; ATTEND Pharmacist